=== PATIENT | female | born 1995 | race Two or more races ===

== ENCOUNTER 2018-11-10 17:25 | Emergency (ER) | payer MEDICAID ==
[~2018-11-10] VITALS: Ht 160 cm; Wt 86.5 kg
--- NOTE | 2018-11-10 17:43 | NUR ---
TASK RN: PT SITTING UP IN [place], JAIME NOTED. PT REPORTS SUDDEN ONSET, STABBING RLQ PAIN ONSET WHILE SITTING AT APPROX 1300. DENIES ASSOCIATED N/V/D/VAGINAL DC OR BLEEDING/URINARY SYMPTOMS/FEVER. INCREASED PAIN WITH MOVEMENT AND BM. UA COLLECTED AND SENT TO LAB. ERP AT BEDSIDE FOR INITIAL ASSESSMENT. REPORT TO PRIMARY RNBESSIE
--- NOTE | 2018-11-10 17:48 | NUR ---
BEDSIDE REPORT FROM VIKTOR TEJEDA
[2018-11-10] MEDS ORDERED: IBUPROFEN 600 MG TABLET PO ONE (18:00)
[2018-11-10] MEDS ORDERED: ACETAMINOPHEN 500 MG TABLET PO ONE (18:00)
[2018-11-10 18:05] LABS: CULTURE INDICATED? YES; MICROSCOPIC AUTO
--- NOTE | 2018-11-10 18:10 | NUR ---
PT TO US
[2018-11-10 18:15] LABS: BASOPHILS # (AUTO) 0.02 x10^3/uL (0-0.1); BASOPHILS % (AUTO) 0 % (0-1); EOSINOPHILS # (AUTO) 0.13 x10^3/uL (0-0.4); EOSINOPHILS % (AUTO) 1 % (1-7); LYMPHOCYTES # (AUTO) 2.82 x10^3/uL (1-3.4); LYMPHOCYTES % (AUTO) 27 % (22-44); MD NO; MEAN CORPUSCULAR HEMOGLOBIN 26.8 pg (27.0-34.8); MEAN CORPUSCULAR HGB CONC 31.7 g/dL (32.4-35.8); MEAN CORPUSCULAR VOLUME 84.5 fL (80-100); MEAN PLATELET VOLUME 8.7 fL (7.4-10.4); MONOCYTES # (AUTO) 0.76 x10^3/uL (0.2-0.8); MONOCYTES % (AUTO) 7 % (2-9); NEUTROPHILS # (AUTO) 6.85 x10^3/uL (1.8-6.8); NEUTROPHILS % (AUTO) 65 % (42-75); PLATELET COUNT 347 x10^3/uL (130-400); RED BLOOD COUNT 4.47 x10^6/uL (3.82-5.3); RED CELL DISTRIBUTION WIDTH 14.8 % (9.6-15.2)
[2018-11-10 18:20] LABS: ALBUMIN 3.5 g/dL (3.4-5.0); ANION GAP 6 mmol/L (5-15); CALCIUM 8.6 mg/dL (8.5-10.1); CHLORIDE 110 mmol/L (98-107); CREATININE 1.04 mg/dL (0.55-1.02)
[2018-11-10] MEDS ORDERED: ACETAMINOPHEN 500 MG TABLET ONE (18:27)
[2018-11-10] MEDS ORDERED: IBUPROFEN 600 MG TABLET ONE (18:27)
--- NOTE | 2018-11-10 19:16 | NUR ---
PT RESTING IN [place] WITH MOTHER AT BEDSIDE, AWAITNG TEST RESULTS. CALL LIGHT WITHIN REACH, NO NEEDS AT THIS TIME
[2018-11-10 19:45] VITALS: BP 97/58
[2018-11-10] MEDS ORDERED: CEFDINIR 300 MG CAPSULE PO ONE (20:00)
--- NOTE | 2018-11-10 20:14 | NUR ---
pt up for dc, awaiting paperwork
[2018-11-10 20:40] LABS: HCG UR SG 1.035 (1.003-1.030)
== END 2018-11-10 20:32 | disposition home or self-care (01) ==
LOC: ED 20:26
DX: N30.00 Acute cystitis without hematuria (principal)
CPT/HCPCS: 36415; 76856; 80048; 81001; 81025; 82040; 85025; 87086; 99284

== ENCOUNTER 2019-01-03 21:34 | Emergency (ER) | payer MEDICAID ==
[~2019-01-03] VITALS: Ht 165.1 cm; Wt 8.1 kg
[2019-01-03 22:37] VITALS: BP 114/81
== END 2019-01-03 22:38 | disposition home or self-care (01) ==
LOC: ED 22:05
DX: L24.9 Irritant contact dermatitis, unspecified cause (principal)
CPT/HCPCS: 99281